=== PATIENT | female | born 1955 | race Caucasian/White ===

== ENCOUNTER 2022-01-31 07:05 | Observation (INO) | payer MEDICARE ==
[2022-01-29 11:10] VITALS: BP 140/65
[2022-01-29 11:24] LABS: APPEARANCE,URINE CLEAR (CLEAR); BASOPHILS % (AUTO) 0.3 % (0.0-5.0); BILIRUBIN,URINE NEGATIVE (NEGATIVE); COLOR,URINE YELLOW (YELLOW); EOSINOPHILS % (AUTO) 1.9 % (0.0-8.0); GLUCOSE, URINE (UA) NEGATIVE (NEGATIVE); HEMATOCRIT 39.6 % (36-48); KETONES,URINE NEGATIVE (NEGATIVE); LEUKOCYTE ESTERASE ,URINE SMALL (NEGATIVE); LYMPHOCYTES % (AUTO) 20.9 % (21.0-51.0); MEAN CORPUSCULAR HEMOGLOBIN 31.2 pg (27.0-33.0); MEAN CORPUSCULAR HGB CONC 33.8 g/dL (32.0-36.0); MEAN CORPUSCULAR VOLUME 92.3 fL (79-99); MONOCYTES % (AUTO) 7.9 % (3.0-13.0); NEUTROPHILS % (AUTO) 68.4 % (40.0-77.0); NITRATE,URINE NEGATIVE (NEGATIVE); OCCULT BLOOD,URINE TRACE-INTACT (NEGATIVE); PH,URINE 6.5 (5.0-8.0); PLATELET COUNT (AUTO) 205 K/uL (130-400); PROTEIN,URINE NEGATIVE (NEGATIVE); RED BLOOD CELL COUNT(AUTO) 4.29 MIL/uL (4.00-5.50); RED CELL DISTRIBUTION WIDTH 13.5 % (11.0-15.5); UROBILINOGEN,URINE 0.2 mg/dL (0.2-1.0); WHITE BLOOD COUNT (AUTO) 7.9 K/uL (4.8-10.8)
[2022-01-29 11:35] LABS: INR 0.97 (0.85-1.15); PROTHROMBIN TIME 10.6 SEC (9.6-11.6)
[2022-01-29 11:36] LABS: CREATININE 0.8 mg/dL (0.5-1.5); PARTIAL THROMBOPLASTIN TIME 26.5 SEC (26.3-35.5); POTASSIUM 4.2 mmol/L (3.5-5.1)
[2022-01-29 11:45] LABS: B-TYPE NATRIURETIC PEPTIDE 20 pg/mL (0-100)
[2022-01-29 11:52] LABS: BACTERIA,URINE Rare /HPF (None Seen); RBC,URINE 0-1 /HPF (0-1); SQUAMOUS EPITHELIAL CELL,UR Rare /HPF (0-2); WBC,URINE 0-1 /HPF (0-1)
[2022-01-31] VITALS (18 sets, daily range): BP systolic 140–207; BP diastolic 73–89
[~2022-01-31] VITALS: Ht 170.2 cm; Wt 124.1 kg
[~2022-01-31 07:05] MED LIST: ACYC400T20 PO; ADV250 IH; ALBU8.5H8 IH; AMLO-257 PO; ASPI-449 PO; CITA-107 PO; CLOP75TA14 PO; CYCL-309 PO; LEVO100C4 PO; LEVO88CA4 PO; LOSA1TAB54 PO; METO-408 PO; NITR0.4T50 SL; OMEP20CA12 PO; POTA-79 PO
[2022-01-31] MEDS ORDERED: 0.9%NACL 1000ML 1,000 ML IV SCH ×2 (08:00→14:30)
[2022-01-31] MEDS ORDERED: ISOS60TA77 PO (10:51)
[2022-01-31] MEDS ORDERED: NITROGLYCERIN 50MG VIAL ONE (12:42)
[2022-01-31] MEDS ORDERED: NICARDIPINE 25MG INJ IV ONE (12:42)
[2022-01-31] MEDS ORDERED: IOHEXOL-350 50ML VIAL IV ONE (12:42)
[2022-01-31] MEDS ORDERED: HEPARIN 10,000 UNIT/10ML (1,000 UNIT/ML) VIAL ONE (12:43)
[2022-01-31] MEDS ORDERED: MIDAZOLAM HCL 1 MG/ML 2ML VIAL ONE ×2 (12:43→13:29)
[2022-01-31] MEDS ORDERED: IOHEXOL 350 MG/ML 100ML INFUS..BTL IV ONE (12:43)
[2022-01-31] MEDS ORDERED: LIDOCAINE HCL 400MG/20ML VIAL ONE (12:43)
[2022-01-31] MEDS ORDERED: FENTANYL CITRATE PF 50 MCG/1 ML 2ML VIAL ONE ×2 (12:43→14:09)
[2022-01-31] MEDS ORDERED: TICAGRELOR 90 MG TABLET ONE (13:45)
[2022-01-31] MEDS ORDERED: LABETALOL 20MG SYG IV ONE (14:21)
[2022-01-31] MEDS ORDERED: CLOPIDOGREL 300MG TAB PO SCH (14:30)
[2022-01-31] MEDS ORDERED: PHARMACY COMMUNICATION MISC SCH (15:00)
[2022-01-31] MEDS ORDERED: ACETAMINOPHEN 325 MG TAB PO PRN (15:00)
[2022-01-31] MEDS ORDERED: MORPHINE 4 MG SYG IM PRN (15:00)
[2022-01-31] MEDS ORDERED: AMLODIPINE 5 MG TAB PO SCH (16:46)
[2022-01-31] MEDS ORDERED: ISOSORBIDE MONO 60MG SR TAB PO SCH (16:48)
[2022-01-31] MEDS ORDERED: LOSARTAN 100 MG TABLET PO SCH (16:54)
[2022-01-31] MEDS ORDERED: METOPROLOL SUCCINATE 50 MG TAB.SR.24H PO SCH (16:57)
[2022-01-31] MEDS ORDERED: HYDROCHLOROTHIAZIDE 25 MG TABLET PO SCH (16:58)
[2022-01-31] MEDS ORDERED: FLUTICASONE/VILANTEROL 1 EACH AER.POW.BA IH SCH (21:00)
[2022-01-31] MEDS ORDERED: CYCLOBENZAPRINE HCL 10 MG TABLET PO SCH (21:00)
[2022-01-31] MEDS ORDERED: KCL 20 MEQ ERTAB PO SCH (21:00)
[2022-01-31] MEDS ORDERED: ATORVASTATIN 40 MG TABLET PO SCH (21:00)
[2022-01-31] MEDS ORDERED: CITALOPRAM 20 MG TABLET PO SCH (21:00)
[2022-02-01] VITALS (12 sets, daily range): BP systolic 145–176; BP diastolic 75–92
[2022-02-01 03:41] LABS: HEMATOCRIT 39.1 % (36-48); MEAN CORPUSCULAR HEMOGLOBIN 31.3 pg (27.0-33.0); MEAN CORPUSCULAR HGB CONC 34.5 g/dL (32.0-36.0); MEAN CORPUSCULAR VOLUME 90.7 fL (79-99); RED BLOOD CELL COUNT(AUTO) 4.31 MIL/uL (4.00-5.50); RED CELL DISTRIBUTION WIDTH 13.3 % (11.0-15.5); WHITE BLOOD COUNT (AUTO) 8.8 K/uL (4.8-10.8)
[2022-02-01] MEDS ORDERED: HYDRALAZINE 20MG/ML VIAL IV ONE ×2 (04:00)
[2022-02-01 04:08] LABS: ALBUMIN 3.6 g/dL (3.5-5.0); BILIRUBIN,DIRECT 0.2 mg/dL (0.0-0.3); CREATININE 0.9 mg/dL (0.5-1.5); MAGNESIUM 1.8 mg/dL (1.80-2.40); POTASSIUM 3.5 mmol/L (3.5-5.1); THYROID STIMULATING HORMONE 9.23 uIU/mL (0.36-3.74); TOTAL PROTEIN, SERUM 7.2 g/dL (6.0-8.3)
[2022-02-01] MEDS ORDERED: LEVOTHYROXINE 88 MCG TABLET PO SCH (06:30)
[2022-02-01] MEDS ORDERED: PANTOPRAZOLE 40 MG TAB DR PO SCH (07:30)
[2022-02-01] MEDS ORDERED: NON-FORMULARY MEDICATION 1 EACH (Levothyroxine Sodium (Levothyroxine) 100 MCG) PO SCH (09:00)
[2022-02-01] MEDS ORDERED: LOSARTAN 100 MG TABLET PO SCH (09:00)
[2022-02-01] MEDS ORDERED: ISOSORBIDE MONO 60MG SR TAB PO SCH (09:00)
[2022-02-01] MEDS ORDERED: METOPROLOL SUCCINATE 50 MG TAB.SR.24H PO SCH (09:00)
[2022-02-01] MEDS ORDERED: ACYCLOVIR 200 MG CAPSULE PO SCH (09:00)
[2022-02-01] MEDS ORDERED: HYDROCHLOROTHIAZIDE 25 MG TABLET PO SCH (09:00)
[2022-02-01] MEDS ORDERED: CLOPIDOGREL 75MG TAB PO SCH (09:00)
[2022-02-01] MEDS ORDERED: AMLODIPINE 5 MG TAB PO SCH (09:00)
[2022-02-01] MEDS ORDERED: ASPIRIN 81MG CHEW TAB PO SCH (09:00)
[2022-02-01] MEDS ORDERED: PANT40TA PO (10:47)
[2022-02-01] MEDS ORDERED: METO50TA9 PO (10:47)
== END 2022-02-01 11:20 | disposition home or self-care (01) ==
LOC: DAH 07:05 → DAHIP 07:06 → 2CH 15:22
PROVIDERS: ADMIT Internal Medicine; ATTEND Internal Medicine
DX: I25.119 Atherosclerotic heart disease of native coronary artery with unspecified angina pectoris (principal); I10 Essential (primary) hypertension; E11.9 Type 2 diabetes mellitus without complications; E66.9 Obesity, unspecified; E03.9 Hypothyroidism, unspecified; E78.5 Hyperlipidemia, unspecified; G47.33 Obstructive sleep apnea (adult) (pediatric); Z79.82 Long term (current) use of aspirin; Z95.5 Presence of coronary angioplasty implant and graft; Z79.899 Other long term (current) drug therapy
CPT/HCPCS: 80048 ×2; 83880; 85025; 85610; 85730; 81001; 36415 ×3; 71045; 93005 ×4; 93454; 96372; 85347 ×2; 82948; 94660 ×2; 96374; 96376; 84443; 80076; 83735; 85027; C1769 ×3; C1887; C1894 ×3; C1760; C1874; Q9965 ×2; G0378 ×20; J3010 ×2; J3490 ×3; J1644 ×2; J2250; J2270; Q9967; A4215; A4223 ×3; A4222; A4221; A4663; A4216; A4606; C9600; J0360 ×2; 99156; 99157

== ENCOUNTER → 2022-03-20 | Outpatient (CLI) | payer MEDICARE ==
[~2022-03-20] MED LIST changes: +ISOS60TA77 PO; -LEVO100C4 PO; -METO-408 PO; +METO50TA9 PO; -OMEP20CA12 PO; +PANT40TA PO
[2022-03-20 13:04] LABS: CHOLESTEROL 203 mg/dL (<200); HDL CHOLESTEROL 56 mg/dL (35-85); LDL DIRECT 119 mg/dL (0-99); TRIGLYCERIDES 122 mg/dL (30-200)
== END | disposition home or self-care (01) ==
LOC: LAB 10:11
PROVIDERS: ATTEND Internal Medicine Cardiovascular Disease
DX: R73.03 Prediabetes (principal); I25.119 Atherosclerotic heart disease of native coronary artery with unspecified angina pectoris; E11.9 Type 2 diabetes mellitus without complications
CPT/HCPCS: 36415; 80061; 83036

== ENCOUNTER 2022-08-26 08:11 | Emergency (ER) | payer MEDICARE ==
[~2022-08-26] VITALS: Ht 170.2 cm; Wt 127.0 kg
[~2022-08-26 08:11] MED LIST changes: +CLOP-31 PO; -CLOP75TA14 PO
[2022-08-26] MEDS ORDERED: ORPHENADRINE CITRATE 30 MG/ML ML IM ONE (09:00)
[2022-08-26] MEDS ORDERED: MORPHINE 4 MG SYG IM ONE ×2 (09:00→12:00)
[2022-08-26 10:34] VITALS: BP 144/94
[2022-08-26] MEDS ORDERED: ACET-2079 PO (11:34)
[2022-08-26] MEDS ORDERED: CYCL-309 PO (11:34)
== END 2022-08-26 11:51 | disposition home or self-care (01) ==
LOC: EDH 08:11
DX: M48.54XA Collapsed vertebra, not elsewhere classified, thoracic region, initial encounter for fracture (principal); M48.56XA Collapsed vertebra, not elsewhere classified, lumbar region, initial encounter for fracture; E03.9 Hypothyroidism, unspecified; E78.00 Pure hypercholesterolemia, unspecified; I10 Essential (primary) hypertension; Z88.0 Allergy status to penicillin; Z79.899 Other long term (current) drug therapy; Z79.82 Long term (current) use of aspirin; Z98.890 Other specified postprocedural states; W01.0XXA Fall on same level from slipping, tripping and stumbling without subsequent striking against object, initial encounter; Y93.89 Activity, other specified; Y92.89 Other specified places as the place of occurrence of the external cause; Y99.8 Other external cause status
CPT/HCPCS: 99285; 72131; 96372 ×3; J2270 ×2; J2360

== ENCOUNTER → 2022-12-02 | Outpatient (CLI) | payer MEDICARE ==
[~2022-12-02] MED LIST changes: +ACET-2079 PO
== END | disposition home or self-care (01) ==
LOC: RAH 13:50
PROVIDERS: ATTEND Neurological Surgery
DX: M48.061 Spinal stenosis, lumbar region without neurogenic claudication (principal); M51.16 Intervertebral disc disorders with radiculopathy, lumbar region
CPT/HCPCS: 72148

== ENCOUNTER 2022-12-08 07:00 | Observation (INO) | payer MEDICARE ==
[~2022-12-08] VITALS: Ht 170.2 cm; Wt 118.0 kg
[~2022-12-08 07:00] MED LIST changes: -ACET-2079 PO; -CLOP-31 PO; -METO50TA9 PO; +POTA-364 PO; -POTA-79 PO
[2022-12-08 10:03] LABS: BASOPHILS % (AUTO) 0.3 % (0.0-5.0); EOSINOPHILS % (AUTO) 2.6 % (0.0-8.0); LYMPHOCYTES % (AUTO) 24.9 % (21.0-51.0); MEAN CORPUSCULAR HEMOGLOBIN 31.2 pg (27.0-33.0); MEAN CORPUSCULAR HGB CONC 33.9 g/dL (32.0-36.0); MEAN CORPUSCULAR VOLUME 92.1 fL (79-99); MONOCYTES % (AUTO) 10.1 % (3.0-13.0); NEUTROPHILS % (AUTO) 61.6 % (40.0-77.0); PLATELET COUNT (AUTO) 221 K/uL (130-400); RED BLOOD CELL COUNT(AUTO) 4.45 MIL/uL (4.00-5.50); RED CELL DISTRIBUTION WIDTH 13.2 % (11.0-15.5); WHITE BLOOD COUNT (AUTO) 6.6 K/uL (4.8-10.8)
[2022-12-08 10:08] VITALS: BP 149/72
[2022-12-08 10:11] LABS: CREATININE 0.8 mg/dL (0.5-1.5); POTASSIUM 3.7 mmol/L (3.5-5.1)
[2022-12-08] MEDS ORDERED: METO-409 PO (10:54)
[2022-12-08] MEDS ORDERED: ROSU20TA31 PO (10:54)
[2022-12-08] MEDS ORDERED: MVIT PO (10:54)
[2022-12-08] MEDS ORDERED: EZET10TA48 PO (10:54)
[2022-12-08] MEDS ORDERED: calcium citrate PO (10:55)
[2022-12-09] VITALS (26 sets, daily range): BP systolic 100–138; BP diastolic 50–78
[2022-12-09] MEDS ORDERED: CLINDAMYCIN IVPB 900MG/50ML 50 ML IV ONE (06:46)
[2022-12-09] MEDS ORDERED: 0.9%NACL 1000ML 1,000 ML IV ONE (06:46)
[2022-12-09] MEDS ORDERED: PROPOFOL 10 MG/ML 20ML VIAL IV ONE ×2 (06:50→07:29)
[2022-12-09] MEDS ORDERED: GLYCOPYRROLATE 1 MG/5 ML SYRINGE ONE (06:50)
[2022-12-09] MEDS ORDERED: DEXAMETHASONE SOD PHOSPHATE 10MG/ML 1ML VIAL ONE ×2 (06:50→06:54)
[2022-12-09] MEDS ORDERED: SUCCINYLCHOLINE CHLORIDE 20 MG/ML 10 ML VIAL ONE (06:50)
[2022-12-09] MEDS ORDERED: LIDOCAINE PF 100MG/5ML (2%) SYRINGE 5ML ONE (06:50)
[2022-12-09] MEDS ORDERED: NEOSTIGMINE 5MG/5ML SYR IV ONE (06:51)
[2022-12-09] MEDS ORDERED: ROCURONIUM 10MG/1ML SYR 10 MG/ML ML ONE ×2 (06:51→10:05)
[2022-12-09] MEDS ORDERED: ONDANSETRON 4MG INJ ONE ×2 (06:51→06:55)
[2022-12-09] MEDS ORDERED: MIDAZOLAM HCL 1 MG/ML 2ML VIAL ONE (06:51)
[2022-12-09] MEDS ORDERED: FENTANYL CITRATE PF 50 MCG/1 ML 2ML VIAL ONE ×4 (06:51→12:57)
[2022-12-09] MEDS: BUPIVACAINE/EPI/PF 0.25% 30ML VIAL IJ SCH ×2 (07:00→07:56)
[2022-12-09] MEDS ORDERED: GENTAMICIN SULFATE 80 MG/2 ML VIAL ONE (07:03)
[2022-12-09] MEDS ORDERED: THROMBIN-JMI 20000 UNIT KIT TP ONE (07:04)
[2022-12-09] MEDS ORDERED: MORPHINE PF 100MG/10ML AMP IV ONE (07:04)
[2022-12-09] MEDS ORDERED: ARTIFICIAL TEARS 3.5 GM OINTMENT ONE (07:51)
[2022-12-09] MEDS ORDERED: NITROGLYCERIN 0.4 MG SL TAB SL PRN (12:30)
[2022-12-09] MEDS ORDERED: MORPHINE 2 MG SYG IVP PRN (12:30)
[2022-12-09] MEDS: DEXAMETHASONE SOD PHOSPHATE 4 MG/ML 1ML VIAL IVP SCH ×2 (12:30→18:57)
[2022-12-09] MEDS ORDERED: LACTATED RINGERS 1000ML 1,000 ML IV SCH (12:30)
[2022-12-09] MEDS ORDERED: ALBUTEROL INHALER 90MCG/INH IH PRN (12:30)
[2022-12-09] MEDS ORDERED: CYCLOBENZAPRINE HCL 10 MG TABLET PO PRN (12:30)
[2022-12-09] MEDS ORDERED: PROMETHAZINE HCL 25 MG/ML 1ML AMPULE IM PRN (12:30)
[2022-12-09] MEDS ORDERED: 0.9%NACL 10ML VIAL IVP PRN (12:30)
[2022-12-09] MEDS: CLINDAMYCIN IVPB 900MG/50ML 50 ML IV SCH ×2 (15:14→22:19)
[2022-12-09] MEDS: HYDROCODONE/ACETAMINOPHEN 5/325 MG TAB PO PRN (15:14)
[2022-12-09] MEDS ORDERED: KCL 20 MEQ ERTAB PO SCH (21:00)
[2022-12-09] MEDS ORDERED: ACYCLOVIR 800 MG TABLET PO SCH (21:00)
[2022-12-09] MEDS ORDERED: FLUTICASONE/VILANTEROL 1 EACH AER.POW.BA IH SCH (21:00)
[2022-12-09] MEDS ORDERED: CITALOPRAM 20 MG TABLET PO SCH (21:00)
[2022-12-10] MEDS: DEXAMETHASONE SOD PHOSPHATE 4 MG/ML 1ML VIAL IVP SCH ×2 (01:30→05:56)
[2022-12-10] MEDS: HYDROCODONE/ACETAMINOPHEN 5/325 MG TAB PO PRN (03:27)
[2022-12-10] MEDS: CLINDAMYCIN IVPB 900MG/50ML 50 ML IV SCH (05:56)
[2022-12-10] MEDS ORDERED: LEVOTHYROXINE 88 MCG TABLET PO SCH (06:30)
[2022-12-10] MEDS ORDERED: PANTOPRAZOLE 40 MG TAB DR PO SCH (07:30)
[2022-12-10 08:00] VITALS: BP 145/74
[2022-12-10] MEDS ORDERED: CALCIUM CITRATE PO SCH (09:00)
[2022-12-10] MEDS ORDERED: Rosuvastatin Calcium 20 MG PO SCH (09:00)
[2022-12-10] MEDS ORDERED: ISOSORBIDE MONO 60MG SR TAB PO SCH (09:00)
[2022-12-10] MEDS ORDERED: AMLODIPINE 5 MG TAB PO SCH (09:00)
[2022-12-10] MEDS ORDERED: METOPROLOL SUCCINATE 50 MG TAB.SR.24H PO SCH (09:00)
[2022-12-10] MEDS ORDERED: LOSARTAN/HYDROCHLOROTHIAZIDE 50-12.5MG TABLET PO SCH (09:00)
[2022-12-10] MEDS ORDERED: EZETIMIBE 10 MG TAB PO SCH (09:00)
[2022-12-10] MEDS ORDERED: ASPIRIN 81 MG EC TAB PO SCH (09:00)
[2022-12-10] MEDS ORDERED: MULTIVITAMIN TABLET PO SCH (09:00)
== END 2022-12-10 10:10 | disposition home or self-care (01) ==
LOC: DAHIP 12-09 05:49 → EDSTATUS 12-09 07:00 → 4AH 12-09 13:35
PROVIDERS: ADMIT Neurological Surgery; ATTEND Neurological Surgery
DX: M48.062 Spinal stenosis, lumbar region with neurogenic claudication (principal); Z20.822 Contact with and (suspected) exposure to COVID-19; I25.10 Atherosclerotic heart disease of native coronary artery without angina pectoris; E78.5 Hyperlipidemia, unspecified; M48.07 Spinal stenosis, lumbosacral region; M48.54XA Collapsed vertebra, not elsewhere classified, thoracic region, initial encounter for fracture; M48.56XA Collapsed vertebra, not elsewhere classified, lumbar region, initial encounter for fracture; Z88.0 Allergy status to penicillin; Z79.899 Other long term (current) drug therapy; Z98.890 Other specified postprocedural states; W19.XXXA Unspecified fall, initial encounter
CPT/HCPCS: 80048; 85025; 87426; 36415; 71045; 93005; 63047; 63048 ×2; 96365; 96366 ×2; 96375; 82948 ×2; 72072; 72020; 96376; J1100 ×5; G0378 ×21; G0379; A4663; J7030 ×2; A4344; A4649 ×2; J3010 ×4; J3490 ×6; J2710; J0330; J2001; J1580; J2250; J2704 ×2; J2274; J2405 ×2; A4215; A4223; A4222; A4221; A4600

== ENCOUNTER → 2023-06-23 | Outpatient (CLI) | payer MEDICARE ==
[~2023-06-23] MED LIST changes: +EZET10TA48 PO; +METO-409 PO; +MVIT PO; +ROSU20TA73 PO; +calcium citrate PO
[2023-06-23 12:16] LABS: BASOPHILS # (AUTO) 0.02 K/uL (0.00-0.20); BASOPHILS % (AUTO) 0.4 % (0.0-5.0); EOSINOPHILS # (AUTO) 0.13 K/uL (0.00-0.70); EOSINOPHILS % (AUTO) 2.3 % (0.0-8.0); HEMATOCRIT 40.4 % (36-48); IMMATURE GRANULOCYTE ABSOLUTE 0.03 K/uL (0-1); LYMPHOCYTES # (AUTO) 1.7 K/uL (1.0-4.8); LYMPHOCYTES % (AUTO) 29.3 % (21.0-51.0); MEAN CORPUSCULAR HEMOGLOBIN 31.6 pg (27.0-33.0); MEAN CORPUSCULAR HGB CONC 34.2 g/dL (32.0-36.0); MEAN CORPUSCULAR VOLUME 92.4 fL (79-99); MONOCYTES # (AUTO) 0.5 K/uL (0.1-1.0); MONOCYTES % (AUTO) 8.3 % (3.0-13.0); NEUTROPHILS # (AUTO) 3.4 K/uL (1.8-7.7); NEUTROPHILS % (AUTO) 59.2 % (40.0-77.0); PLATELET COUNT (AUTO) 228 K/uL (130-400); RED BLOOD CELL COUNT(AUTO) 4.37 MIL/uL (4.00-5.50); RED CELL DISTRIBUTION WIDTH 12.6 % (11.0-15.5); WHITE BLOOD COUNT (AUTO) 5.7 K/uL (4.8-10.8)
[2023-06-23 12:28] LABS: ALBUMIN 3.7 g/dL (3.5-5.0); BILIRUBIN,TOTAL 0.4 mg/dL (0.2-1.0); CREATININE 0.8 mg/dL (0.5-1.5); POTASSIUM 3.5 mmol/L (3.5-5.1); TOTAL PROTEIN, SERUM 7.3 g/dL (6.0-8.3)
== END | disposition home or self-care (01) ==
LOC: LAB 06-22 09:48
PROVIDERS: ATTEND Internal Medicine Cardiovascular Disease
DX: I87.2 Venous insufficiency (chronic) (peripheral) (principal); E78.2 Mixed hyperlipidemia
CPT/HCPCS: 36415; 80053; 80061; 85025

== ENCOUNTER → 2024-01-21 | Outpatient (CLI) | payer MEDICARE ==
[2024-01-21 12:08] LABS: BASOPHILS # (AUTO) 0.02 K/uL (0.00-0.20); BASOPHILS % (AUTO) 0.3 % (0.0-5.0); EOSINOPHILS # (AUTO) 0.17 K/uL (0.00-0.70); EOSINOPHILS % (AUTO) 2.4 % (0.0-8.0); HEMATOCRIT 38.6 % (36-48); IMMATURE GRANULOCYTE ABSOLUTE 0.03 K/uL (0-1); LYMPHOCYTES # (AUTO) 2.1 K/uL (1.0-4.8); LYMPHOCYTES % (AUTO) 29.5 % (21.0-51.0); MEAN CORPUSCULAR HEMOGLOBIN 31.4 pg (27.0-33.0); MEAN CORPUSCULAR HGB CONC 33.9 g/dL (32.0-36.0); MEAN CORPUSCULAR VOLUME 92.6 fL (79-99); MONOCYTES # (AUTO) 0.7 K/uL (0.1-1.0); MONOCYTES % (AUTO) 10.1 % (3.0-13.0); NEUTROPHILS % (AUTO) 57.3 % (40.0-77.0); PLATELET COUNT (AUTO) 210 K/uL (130-400); RED BLOOD CELL COUNT(AUTO) 4.17 MIL/uL (4.00-5.50); RED CELL DISTRIBUTION WIDTH 13.2 % (11.0-15.5)
[2024-01-21 12:38] LABS: ALBUMIN 3.8 g/dL (3.5-5.0); BILIRUBIN,TOTAL 0.5 mg/dL (0.2-1.0); CREATININE 0.8 mg/dL (0.5-1.0); MAGNESIUM 1.7 mg/dL (1.80-2.40); POTASSIUM 3.4 mmol/L (3.5-5.1); TOTAL PROTEIN, SERUM 7.4 g/dL (6.0-8.3)
== END | disposition home or self-care (01) ==
LOC: LAB 08:52
PROVIDERS: ATTEND Internal Medicine Cardiovascular Disease
DX: I87.2 Venous insufficiency (chronic) (peripheral) (principal); E78.5 Hyperlipidemia, unspecified
CPT/HCPCS: 36415; 80053; 80061; 83735; 85025

== ENCOUNTER → 2024-02-09 | Outpatient (CLI) | payer MEDICARE ==
[2024-02-09 11:55] LABS: CREATININE 0.8 mg/dL (0.5-1.0); MAGNESIUM 1.9 mg/dL (1.80-2.40); POTASSIUM 4.3 mmol/L (3.5-5.1)
== END | disposition home or self-care (01) ==
LOC: LAB 10:48
PROVIDERS: ATTEND Internal Medicine Cardiovascular Disease
DX: R60.9 Edema, unspecified (principal)
CPT/HCPCS: 36415; 80048; 83735

== ENCOUNTER → 2024-03-11 | Outpatient (CLI) | payer MEDICARE ==
[2024-03-11 12:10] LABS: BASOPHILS # (AUTO) 0.03 K/uL (0.00-0.20); BASOPHILS % (AUTO) 0.4 % (0.0-5.0); EOSINOPHILS # (AUTO) 0.27 K/uL (0.00-0.70); EOSINOPHILS % (AUTO) 3.6 % (0.0-8.0); HEMATOCRIT 39.4 % (36-48); IMMATURE GRANULOCYTE ABSOLUTE 0.03 K/uL (0-1); LYMPHOCYTES % (AUTO) 26.5 % (21.0-51.0); MEAN CORPUSCULAR HEMOGLOBIN 31.5 pg (27.0-33.0); MEAN CORPUSCULAR HGB CONC 33.5 g/dL (32.0-36.0); MONOCYTES # (AUTO) 0.7 K/uL (0.1-1.0); NEUTROPHILS # (AUTO) 4.5 K/uL (1.8-7.7); NEUTROPHILS % (AUTO) 60.1 % (40.0-77.0); PLATELET COUNT (AUTO) 198 K/uL (130-400); RED BLOOD CELL COUNT(AUTO) 4.19 MIL/uL (4.00-5.50); RED CELL DISTRIBUTION WIDTH 12.9 % (11.0-15.5); WHITE BLOOD COUNT (AUTO) 7.5 K/uL (4.8-10.8)
[2024-03-11 12:21] LABS: INR 1.01 (0.85-1.15); PROTHROMBIN TIME 10.9 SEC (9.6-11.6)
[2024-03-11 12:23] LABS: PARTIAL THROMBOPLASTIN TIME 29.1 SEC (26.3-35.5)
[2024-03-11 12:30] LABS: ALBUMIN 3.9 g/dL (3.5-5.0); BILIRUBIN,TOTAL 0.7 mg/dL (0.2-1.0); CREATININE 0.8 mg/dL (0.5-1.0); POTASSIUM 4.3 mmol/L (3.5-5.1); TOTAL PROTEIN, SERUM 7.5 g/dL (6.0-8.3)
== END | disposition home or self-care (01) ==
LOC: LAB 08:30
PROVIDERS: ATTEND Internal Medicine Cardiovascular Disease
DX: R60.9 Edema, unspecified (principal); I87.2 Venous insufficiency (chronic) (peripheral); R06.02 Shortness of breath; Z79.899 Other long term (current) drug therapy; Z87.891 Personal history of nicotine dependence; Z72.9 Problem related to lifestyle, unspecified; F10.90 Alcohol use, unspecified, uncomplicated
CPT/HCPCS: 36415; 80053; 85025; 85610; 85730